=== PATIENT | male | born 1945 | race Caucasian/White ===

== ENCOUNTER 2017-07-02 12:02 | Emergency (ER) | payer MEDICAID ==
[~2017-07-02] VITALS: Ht 177.8 cm; Wt 71.7 kg
[~2017-07-02 12:02] MED LIST: ASPI81CT89 PO; ATOR40TA PO; CARV12.5 PO; CLOP75TA PO; COZ50 PO; DOCU-299 PO; SPIR50TA PO; [UNRECOGNIZED DRUG - OTHER] TP
[2017-07-02 12:04] VITALS: BP 141/79
--- NOTE | 2017-07-02 12:12 | NUR ---
to lobby a/w bed, azul carolina, dianne noted
--- NOTE | 2017-07-02 12:30 | NUR ---
71m bib self with c/o mass to left inguinal area x 3 days. Pt denies any fevers, n/v/d, or pain. Pt is aox4 with steady gait. SKIN IS PINK/WARM/DRY;VSS; PATIENT POSITIONED FOR COMFORT; HOB ELEVATED; BEDRAILS UP X2; BED DOWN. ER MD MADE AWARE OF PT STATUS.
--- NOTE | 2017-07-02 13:00 | NUR ---
Patient being evaluated by physician at bedside.
[2017-07-02 13:53] VITALS: BP 132/72
--- NOTE | 2017-07-02 13:53 | NUR ---
Patient discharged with v/s stable. Written and verbal after care instructions given and explained. Patient verbalized understanding. Ambulatory with steady gait. All questions addressed prior to discharge. Advised to follow up with PMD.
== END 2017-07-02 13:53 | disposition home or self-care (01) ==
LOC: MED 12:02
DX: K45.8 Other specified abdominal hernia without obstruction or gangrene (principal); I10 Essential (primary) hypertension; Z79.82 Long term (current) use of aspirin
CPT/HCPCS: 99283

== ENCOUNTER 2018-02-16 12:41 | Emergency (ER) | payer MEDICAID ==
[~2018-02-16] VITALS: Ht 170.2 cm; Wt 71.2 kg
[2018-02-16 13:28] VITALS: BP 134/81
--- NOTE | 2018-02-16 13:47 | NUR ---
PT AMBULATES TO BED 2
--- NOTE | 2018-02-16 13:55 | NUR ---
C/O COUGH, RHINORRHEA, HEAD ACHE / X 10 DAYS. STATES HE USED "CONTACT" WITH NO RELIEF. DENIES N/V/D; SKIN IS PINK/WARM/DRY; AAOX4 WITH EVEN AND STEADY GAIT; LUNGS CLEAR BL; HR EVEN AND REGULAR; PT DENIES ANY FEVER, CP, SOB, OR COUGH AT THIS TIME; VSS; PATIENT POSITIONED FOR COMFORT; HOB ELEVATED; BEDRAILS UP X2; BED DOWN. ER MD MADE AWARE OF PT STATUS.
[2018-02-16 15:36] VITALS: BP 134/81
--- NOTE | 2018-02-16 15:37 | NUR ---
DR ALLISON D/C PATIENT. GIVEN PRESCRIBTION OF AUGMENTIN AND PROMETHAZINE. PATIENT AMB OUT OF HOSPITAL WITH EVEN AND STEADY GAIT.
== END 2018-02-16 15:25 | disposition home or self-care (01) ==
LOC: MED 12:41 → EDBD 12:41 → MED 15:25
DX: J06.9 Acute upper respiratory infection, unspecified (principal); J32.4 Chronic pansinusitis; I10 Essential (primary) hypertension; Z79.899 Other long term (current) drug therapy
CPT/HCPCS: 99283

== ENCOUNTER 2021-05-10 13:23 | Emergency (ER) | payer MEDICAID ==
[~2021-05-10] VITALS: Ht 172.7 cm; Wt 71.2 kg
[~2021-05-10 13:23] MED LIST changes: +ASPI-1822 PO; -ASPI81CT89 PO; -COZ50 PO; +LOSA50TA57 PO
[2021-05-10 13:26] VITALS: BP 128/72
[2021-05-10 13:45] VITALS: BP 136/75
--- NOTE | 2021-05-10 13:59 | NUR ---
PT AMBULATED TO BED, STEADY GAIT
--- NOTE | 2021-05-10 14:23 | NUR ---
AT PT BEDSIDE
[2021-05-10] MEDS ORDERED: LIDOCAINE JELLY 2% 30 ML TUBE TP ONE (14:35)
--- NOTE | 2021-05-10 14:40 | NUR ---
AT PT BEDSIDE PERFORMING PROCEDURE
[2021-05-10] MEDS ORDERED: PSYL0.4C2 PO ×2 (15:49→16:59)
[2021-05-10] MEDS ORDERED: HYDR-2734 TP ×2 (15:49→16:59)
[2021-05-10] MEDS ORDERED: MIRABULK PO ×2 (15:49→16:59)
[2021-05-10 16:01] VITALS: BP 136/75
--- NOTE | 2021-05-10 16:02 | NUR ---
Patient discharged with v/s stable. Written and verbal after care instructions given and explained. Patient alert, oriented and verbalized understanding of instructions. Ambulatory with steady gait. All questions addressed prior to discharge. ID band removed. Patient advised to follow up with PMD. Rx of HYDROCORTISONE, POLYTHYLENE, PSYLIUM HUSK given. Patient educated on indication of medication including possible reaction and side effects. Opportunity to ask questions provided and answered.
[2021-05-11] MEDS ORDERED: ACET-5629 PO (12:31)
== END 2021-05-10 16:01 | disposition home or self-care (01) ==
LOC: MED 13:23
DX: K62.3 Rectal prolapse (principal); K64.8 Other hemorrhoids; I11.0 Hypertensive heart disease with heart failure; I50.9 Heart failure, unspecified; Z79.899 Other long term (current) drug therapy; Z79.82 Long term (current) use of aspirin; Z98.890 Other specified postprocedural states
CPT/HCPCS: 99282; 99284

== ENCOUNTER 2021-05-11 10:56 | Emergency (ER) | payer MEDICAID ==
[~2021-05-11] VITALS: Ht 172.7 cm; Wt 71.2 kg
[~2021-05-11 10:56] MED LIST changes: +HYDR-2734 TP; +MIRABULK PO; +PSYL0.4C2 PO
[2021-05-11 11:02] VITALS: BP 125/68
--- NOTE | 2021-05-11 11:26 | NUR ---
77 Y/O M C/O RECTAL PAIN 10 FOR 4 DAYS. PT WAS SEEN HERE YESTERDAY FOR THE SAME RECTAL PAIN AND WAS DISCHARGED HOME WITH PAIN AND HEMORRHOIDS CREAM WITH NO RELEAFE. PT WAS ALSO TOLD TO FOLLOW UP WITH SPECIALIST. BHUPENDRA PMH: HTN, HEMORRHOIDS
--- NOTE | 2021-05-11 12:14 | NUR ---
DR BRENNAN AT BEDSIDE.
[2021-05-11] MEDS ORDERED: ACET-5629 PO (12:31)
--- NOTE | 2021-05-11 12:46 | NUR ---
Patient discharged with v/s stable. Written and verbal after care instructions given and explained. Patient alert, oriented and verbalized understanding of instructions. Ambulatory with steady gait. All questions addressed prior to discharge. ID band removed. Patient advised to follow up with PMD. Rx of OXYCODONE HCI/ACETAMINOPHEN given. Opportunity to ask questions provided and answered.
--- NOTE | 2021-05-11 12:47 | NUR ---
Chart checked and completed. The patient's care was reviewed and supervised by Victorina Patterson RN.
== END 2021-05-11 12:45 | disposition home or self-care (01) ==
LOC: MED 10:56
DX: K62.3 Rectal prolapse (principal); K64.8 Other hemorrhoids; I11.0 Hypertensive heart disease with heart failure; I50.9 Heart failure, unspecified; Z79.899 Other long term (current) drug therapy; Z98.890 Other specified postprocedural states
CPT/HCPCS: 99283